=== PATIENT | female | born 1970 | race Caucasian/White ===

== ENCOUNTER 2018-02-09 20:04 | Emergency (ER) | payer OTHER ==
[~2018-02-09] VITALS: Ht 167.6 cm; Wt 99.3 kg
[~2018-02-09 20:04] MED LIST: ACEASPCAF PO; ACID REDUCER 1150 MG; ACYC400 PO; ALBU90I INH; ALBU90OI INH; ALBU90OI6 INH; ALBU90OI61 INH; ALBUTEROL MDI; ALLER-TEC D 5-1 EACH PO; AMOCLA875 PO; AMOX1XR PO; ATOM10 PO; ATOM40 PO; AZIT250 PO; BENZ100A PO; BIOTIN5000 MCG PO; BUDE10.22 INH; BUDE6HFA INH; BUPR150T2 PO; CALCA500CH; CALCAVITD PO; CEPH500 PO; CETI10 PO; CHOL10002 PO; CHRO200 PO; CIME400 PO; CIPR500 PO; CLIN300 PO; CLON.1 PO; CLON.5; CLON2 PO; CLONAZEPAM; CODGUAEL PO; CYCL10; CYCL10 PO; DESL5 PO; DIPATR PO; DIVA250EC; DULO30 PO; EPIPEN 2-P0.3 MG/0.3 IJ; EPIPEN0.3 MG/0.3 IM; ESCI10 PO; ESOM20 PO; ESTMEDA PO; ESTMETHS PO; ESTR2 PO; ESTRADIOL1 EAC1 TD; FERRO-TIME325 MG PO; FIBER PO; FLUC150A PO; FLUO20; FLUSAL2505 IH; FLUT110OIA INH; FLUT44OIA; FURO40 PO; Flomax0.4 MG PO; GABA100; GABA300 PO; GUAI120S1 PO; GUANFACINE HCL E1 MG PO; HYDACE25S PR; HYDACE5 PO; HYDCHL25 PO; HYDMOR2 PO; Hard Nails2500 MCG; IBUP600 PO; INDO50 PO; L-THREONINE500 MG PO; LEVSOD100 PO; LEVSOD125 PO; LEVSOD75 PO; LISI20 PO; LORA1 PO; LORA2 PO; MERIDIA; METF500 PO; METR500 PO; MIRALAX17 GM PO; MIRAPEX; MODA200 PO; MODAFINIL; MULVITA PO; MULVITB&C PO; MULVITMINE PO; Mucinex600 MG PO; NAPR375 PO; NAPR500 PO; Norco 10-325 T1 EACH PO; Norco 5-325 Ta1 EACH PO; OMEP20ER PO; ONDA4ODT MM; ONDA8 PO; OXYACE5T PO; OXYB5 PO; POLY17UD; POTCHL10ER PO; POTCHL20ER PO; PRAM.125 PO; PRED20 PO; PROBIOTIC1 EAC1 PO; PROC10 PO; Prednisone20 MG PO; Protonix40 MG PO; QUET25; RANI150; RISP.25; RXDIPATR PO; RXHYDACE PO; RXLORA1 PO; SPIR25 PO; SULTRIDS PO; Super B Comple150 MG PO; TOPI100 PO; TOPI25; TRAM50; VALA500 PO; Vitamin B-650 MG PO; Zithromax250 MG PO; [UNRECOGNIZED DRUG - OTHER]
[2018-02-09 20:50] LABS: BASOPHILS ABSOLUTE AUTO 0.06 K/mm3 (0.00-0.23); BASOPHILS PERCENT AUTO 1 % (0-2); EOSINOPHILS ABSOLUTE AUTO 0.18 K/mm3 (0.00-0.68); EOSINOPHILS PERCENT AUTO 2 % (0-6); Hematocrit 40.5 % (33.0-51.0); Hemoglobin 13.3 g/dL (11.5-16.0); IMMATURE GRAN ABSOLUTE AUTO 0.02 K/mm3 (0.00-0.10); IMMATURE GRAN PERCENT AUTO 0 % (0-1); LYMPHOCYTES ABSOLUTE AUTO 1.82 K/mm3 (0.84-5.20); LYMPHOCYTES PERCENT AUTO 19 % (21-46); MONOCYTES ABSOLUTE AUTO 0.64 K/mm3 (0.16-1.47); MONOCYTES PERCENT AUTO 7 % (4-13); Mean Corpuscular HGB 27.9 pg (26.0-34.0); Mean Corpuscular HGB Conc 32.8 g/dL (31.5-36.5); Mean Corpuscular Volume 85 fL (80-100); NEUTROPHILS ABSOLUTE AUTO 6.69 K/mm3 (1.96-9.15); NEUTROPHILS PERCENT AUTO 71 % (41-73); Platelet Count 225 K/mm3 (150-400); RDW Coefficient Variation 12.5 % (11.7-14.2); RDW Standard Deviation 38.5 fL (35.1-46.3); Red Blood Cell Count 4.76 M/mm3 (3.80-5.20); White Blood Cell Count 9.41 K/mm3 (4.00-11.30)
[2018-02-09] MEDS ORDERED: MELA3 PO (21:03)
[2018-02-09] MEDS ORDERED: FURO20 PO (21:04)
[2018-02-09 21:10] LABS: Albumin, Blood 3.4 g/dL (3.4-5.0); Bilirubin, Total 0.3 mg/dL (0.1-1.0); Bun/Creatinine Ratio 9.5 (12.0-20.0); Calcium, Blood 9.1 mg/dL (8.5-10.1); Creatinine, Blood 1.47 mg/dL (0.40-1.00); Globulin, Blood 3.5 g/dL (2.2-4.0); Potassium, Blood 4.1 mmol/L (3.5-5.5); Total Protein, Blood 6.9 g/dL (6.4-8.2)
[2018-02-09 21:17] LABS: Source, Urine Catheter
[2018-02-09 21:19] LABS: Appearance, Urine Clear (Clear); Bilirubin, Urine Neg (Neg); Blood, Urine Neg (Neg); Color, Urine Yellow (P-Yellow); Glucose Qualitative, Urine Neg (Neg); Ketones, Urine Neg (Neg); Leukocyte Esterase, Urine 2+ (Neg); Nitrite, Urine Neg (Neg); Protein, Urine Neg (Neg); Specific Gravity, Urine 1.015 (1.003-1.022); Urobilinogen, Urine NORM (Normal)
[2018-02-09 21:28] LABS: Amorphous Light (0-Heavy); Bacteria Mod /hpf; Red Blood Cells, Urine 0-2 /hpf (0-2); Squamous Epithelial Cells Few /hpf (Few)
[2018-02-09] MEDS ORDERED: Diflucan150 MG PO (22:54)
[2018-02-09] MEDS ORDERED: Zofran Odt4 MG SL (22:54)
[2018-02-09] MEDS ORDERED: Keflex500 MG PO (22:54)
[2018-04-03] MEDS ORDERED: KETO10 PO (13:49)
[2018-04-21] MEDS ORDERED: DULO30 PO (11:02)
[2018-04-21] MEDS ORDERED: CLON.5 PO (11:03)
[2018-04-21] MEDS ORDERED: Hair, Skin & N1 EACH PO (11:03)
== END 2018-02-09 23:03 | disposition home or self-care (01) ==
LOC: ER 20:04
PROVIDERS: Emergency Medicine; Nurse Practitioner Family
DX: R10.9 Unspecified abdominal pain (principal); R30.0 Dysuria; R35.0 Frequency of micturition; Z88.8 Allergy status to other drugs, medicaments and biological substances; Z88.1 Allergy status to other antibiotic agents; Z88.5 Allergy status to narcotic agent; Z91.030 Bee allergy status; Z79.84 Long term (current) use of oral hypoglycemic drugs; J45.909 Unspecified asthma, uncomplicated; Z79.2 Long term (current) use of antibiotics; I12.9 Hypertensive chronic kidney disease with stage 1 through stage 4 chronic kidney disease, or unspecified chronic kidney disease; E11.22 Type 2 diabetes mellitus with diabetic chronic kidney disease; N18.9 Chronic kidney disease, unspecified; E03.9 Hypothyroidism, unspecified; F43.10 Post-traumatic stress disorder, unspecified; Z79.899 Other long term (current) drug therapy
CPT/HCPCS: 36415; 80053; 81001; 83690; 85025; 87086; 96361; 96374; 96375; 99284; J0696; J1885; J2405; J7030

== ENCOUNTER → 2018-02-17 | Outpatient (CLI) | payer OTHER ==
[~2018-02-17] MED LIST changes: +CLON.5 PO; +Diflucan150 MG PO; +FURO20 PO; +Hair, Skin & N1 EACH PO; +KETO10 PO; +Keflex500 MG PO; +MELA3 PO; +Zofran Odt4 MG SL
[2018-02-17 19:59] LABS: Bun/Creatinine Ratio 12.4 (12.0-20.0); Calcium, Blood 9.1 mg/dL (8.5-10.1); Creatinine, Blood 1.37 mg/dL (0.40-1.00); Potassium, Blood 3.9 mmol/L (3.5-5.5)
== END | disposition home or self-care (01) ==
LOC: LAB 17:38
PROVIDERS: Family Medicine
DX: N39.0 Urinary tract infection, site not specified (principal); N19 Unspecified kidney failure
CPT/HCPCS: 80048; 87086

== ENCOUNTER 2018-04-22 08:25 | Day surgery (SDC) | payer OTHER ==
[~2018-04-22] VITALS: Ht 167.6 cm; Wt 91.2 kg
== END 2018-04-22 11:19 | disposition home or self-care (01) ==
LOC: ORSCMMR 08:25 → ORD 09:30 → ORSCMMR 09:30
PROVIDERS: Internal Medicine Gastroenterology
PROC: 0DB68ZX Excision of Stomach, Via Natural or Artificial Opening Endoscopic, Diagnostic (ICD-10-PCS; principal; 2018-04-22 09:30)
PROC: 0DB48ZX Excision of Esophagogastric Junction, Via Natural or Artificial Opening Endoscopic, Diagnostic (ICD-10-PCS; principal; 2018-04-22 09:30)
DX: R11.2 Nausea with vomiting, unspecified (principal); K21.9 Gastro-esophageal reflux disease without esophagitis; R63.4 Abnormal weight loss; I10 Essential (primary) hypertension; E03.9 Hypothyroidism, unspecified; J44.9 Chronic obstructive pulmonary disease, unspecified; E66.9 Obesity, unspecified; Z68.32 Body mass index [BMI] 32.0-32.9, adult; E11.9 Type 2 diabetes mellitus without complications; Z79.84 Long term (current) use of oral hypoglycemic drugs; Z79.899 Other long term (current) drug therapy
CPT/HCPCS: 82947; 88305; 88341; 88342; J7030

== ENCOUNTER 2018-05-18 01:36 | Emergency (ER) | payer OTHER ==
[~2018-05-18] VITALS: Ht 167.6 cm; Wt 91.6 kg
== END 2018-05-18 04:23 | disposition home or self-care (01) ==
LOC: ER 01:36
DX: G43.909 Migraine, unspecified, not intractable, without status migrainosus (principal); Z88.8 Allergy status to other drugs, medicaments and biological substances; Z88.1 Allergy status to other antibiotic agents; Z88.5 Allergy status to narcotic agent; Z88.7 Allergy status to serum and vaccine; Z79.899 Other long term (current) drug therapy; Z79.84 Long term (current) use of oral hypoglycemic drugs; J45.909 Unspecified asthma, uncomplicated; F31.9 Bipolar disorder, unspecified; N18.3 Chronic kidney disease, stage 3 (moderate); Z87.442 Personal history of urinary calculi
CPT/HCPCS: 96361; 96374; 96375; 99283; J1200; J1885; J2405; J2765; J7030

== ENCOUNTER 2020-03-08 00:32 | Day surgery (SDC) | payer OTHER ==
[~2020-03-08 00:32] MED LIST changes: +LOSA25 PO
[2020-03-08] MEDS ORDERED: OXYB5 PO (09:15)
--- NOTE | 2020-03-08 09:31 | NUR ---
Patient pre void bladder scan is 416, Patient voided 400 mls, Patient post void residual was 40.
== END 2020-03-08 09:25 | disposition home or self-care (01) ==
LOC: ATC 00:32
DX: R61 Generalized hyperhidrosis (principal); R32 Unspecified urinary incontinence; E11.22 Type 2 diabetes mellitus with diabetic chronic kidney disease; N18.9 Chronic kidney disease, unspecified; Z88.8 Allergy status to other drugs, medicaments and biological substances; Z88.5 Allergy status to narcotic agent; Z79.899 Other long term (current) drug therapy
CPT/HCPCS: 51798

== ENCOUNTER → 2020-04-18 | Outpatient (CLI) | payer OTHER ==
[2020-04-19 16:18] LABS: Free Thyroxine 1.25 ng/dL (0.70-1.60); Triiodothyronine, Free 2.22 pg/mL (2.18-3.98)
== END | disposition home or self-care (01) ==
LOC: LAB 15:30 → LAB SHORT 15:30
PROVIDERS: Family Medicine
DX: E03.9 Hypothyroidism, unspecified (principal)
CPT/HCPCS: 84439; 84443; 84481

== ENCOUNTER 2020-11-07 09:49 | Day surgery (SDC) | payer OTHER ==
[~2020-11-07] VITALS: Ht 167.6 cm; Wt 103.1 kg
[~2020-11-07 09:49] MED LIST changes: +Cimetidine800 MG PO; +TELM80 PO
[2020-11-07] MEDS ORDERED: DOTTI1 EAC6 (10:27)
--- NOTE | 2020-11-07 10:54 | NUR ---
11/07/20 1054 Alisha Carlton PT RECIEVEING LIDOCAINE 4% UPDRAFT AT THIS TIME PER DR BOSE
== END 2020-11-07 11:55 | disposition home or self-care (01) ==
LOC: ORSCSDS 09:49
PROVIDERS: Student in an Organized Health Care Education/Training Program
PROC: 0DB58ZX Excision of Esophagus, Via Natural or Artificial Opening Endoscopic, Diagnostic (ICD-10-PCS; principal; 2020-11-07 11:00)
PROC: 0DB48ZX Excision of Esophagogastric Junction, Via Natural or Artificial Opening Endoscopic, Diagnostic (ICD-10-PCS; principal; 2020-11-07 11:00)
PROC: 0DB68ZX Excision of Stomach, Via Natural or Artificial Opening Endoscopic, Diagnostic (ICD-10-PCS; principal; 2020-11-07 11:00)
PROC: 0DB98ZX Excision of Duodenum, Via Natural or Artificial Opening Endoscopic, Diagnostic (ICD-10-PCS; principal; 2020-11-07 11:00)
DX: K21.9 Gastro-esophageal reflux disease without esophagitis (principal); K31.819 Angiodysplasia of stomach and duodenum without bleeding; K29.80 Duodenitis without bleeding; K29.50 Unspecified chronic gastritis without bleeding; K31.7 Polyp of stomach and duodenum; K44.9 Diaphragmatic hernia without obstruction or gangrene; R12 Heartburn; I10 Essential (primary) hypertension; E03.9 Hypothyroidism, unspecified; G47.33 Obstructive sleep apnea (adult) (pediatric); E11.9 Type 2 diabetes mellitus without complications; E66.9 Obesity, unspecified; Z68.36 Body mass index [BMI] 36.0-36.9, adult; Z79.899 Other long term (current) drug therapy
CPT/HCPCS: 82947; 88305; 88342; J2001; J2250; J2704; J7120

== ENCOUNTER 2021-04-26 11:11 | Emergency (ER) | payer OTHER ==
[~2021-04-26] VITALS: Ht 167.6 cm; Wt 99.8 kg
[~2021-04-26 11:11] MED LIST changes: +DOTTI1 EAC6
[2021-04-26 11:57] LABS: BASOPHILS ABSOLUTE AUTO 0.06 K/mm3 (0.00-0.23); BASOPHILS PERCENT AUTO 1 % (0-2); EOSINOPHILS PERCENT AUTO 1 % (0-6); Hematocrit 43.9 % (33.0-51.0); Hemoglobin 14.2 g/dL (11.5-16.0); IMMATURE GRAN ABSOLUTE AUTO 0.03 K/mm3 (0.00-0.10); IMMATURE GRAN PERCENT AUTO 0 % (0-1); LYMPHOCYTES PERCENT AUTO 32 % (21-46); MONOCYTES ABSOLUTE AUTO 0.45 K/mm3 (0.16-1.47); MONOCYTES PERCENT AUTO 6 % (4-13); Mean Corpuscular HGB 27.4 pg (26.0-34.0); Mean Corpuscular HGB Conc 32.3 g/dL (31.5-36.5); Mean Corpuscular Volume 85 fL (80-100); Mean Platelet Volume 10.3 fL (9.1-12.4); NEUTROPHILS ABSOLUTE AUTO 4.58 K/mm3 (1.96-9.15); NEUTROPHILS PERCENT AUTO 60 % (41-73); Platelet Count 241 K/mm3 (150-400); RDW Coefficient Variation 13.3 % (11.7-14.2); RDW Standard Deviation 41.5 fL (35.1-46.3); Red Blood Cell Count 5.18 M/mm3 (3.80-5.20); White Blood Cell Count 7.62 K/mm3 (4.00-11.30)
[2021-04-26 12:05] LABS: Alanine Aminotransfer (ALT/SGP 21 U/L (12-78); Albumin, Blood 3.6 g/dL (3.4-5.0); Alk Phos 116 U/L (50-136); Anion Gap 6 mmol/L (6-16); Aspartate Aminotrans (AST/SGOT 11 U/L (12-37); Bilirubin, Total 0.4 mg/dL (0.1-1.0); Blood Urea Nitrogen 12 mg/dL (8-24); Bun/Creatinine Ratio 11.8 (12.0-20.0); CO2, Blood 23 mmol/L (21-32); Calcium, Blood 8.7 mg/dL (8.5-10.1); Chloride, Blood 109 mmol/L (98-108); Creatinine, Blood 1.02 mg/dL (0.40-1.00); Globulin, Blood 3.6 g/dL (2.2-4.0); Glomerular Filtration Rate >60 (60-); Glucose, Blood 135 mg/dL (70-99); Sodium, Blood 138 mmol/L (136-145); Total Protein, Blood 7.2 g/dL (6.4-8.2); Troponin I <0.015 ng/mL (0.000-0.040)
== END 2021-04-26 12:41 | disposition home or self-care (01) ==
LOC: ER 11:11
PROVIDERS: Physician Assistant
DX: M79.10 Myalgia, unspecified site (principal); J44.9 Chronic obstructive pulmonary disease, unspecified; K21.9 Gastro-esophageal reflux disease without esophagitis; E11.22 Type 2 diabetes mellitus with diabetic chronic kidney disease; N18.30 Chronic kidney disease, stage 3 unspecified; Z79.899 Other long term (current) drug therapy; Z88.7 Allergy status to serum and vaccine; Z88.5 Allergy status to narcotic agent; Z88.8 Allergy status to other drugs, medicaments and biological substances
CPT/HCPCS: 36415; 71046; 80053; 84484; 85025; 93005; 93010; 99284-25

== ENCOUNTER → 2023-10-04 | Outpatient (CLI) | payer OTHER ==
[~2023-10-04] MED LIST changes: +TRAM50 PO
[2023-10-04 16:31] LABS: BASOPHILS ABSOLUTE AUTO 0.06 K/mm3 (0.00-0.23); BASOPHILS PERCENT AUTO 1 % (0-2); EOSINOPHILS ABSOLUTE AUTO 0.11 K/mm3 (0.00-0.68); EOSINOPHILS PERCENT AUTO 1 % (0-6); Hematocrit 37.8 % (33.0-51.0); Hemoglobin 12.7 g/dL (11.5-16.0); IMMATURE GRAN ABSOLUTE AUTO 0.02 K/mm3 (0.00-0.10); IMMATURE GRAN PERCENT AUTO 0 % (0-1); LYMPHOCYTES ABSOLUTE AUTO 2.18 K/mm3 (0.84-5.20); LYMPHOCYTES PERCENT AUTO 27 % (21-46); MONOCYTES PERCENT AUTO 8 % (4-13); Mean Corpuscular HGB Conc 33.6 g/dL (31.5-36.5); Mean Corpuscular Volume 83 fL (80-100); Mean Platelet Volume 9.8 fL (9.1-12.4); NEUTROPHILS ABSOLUTE AUTO 5.08 K/mm3 (1.96-9.15); NEUTROPHILS PERCENT AUTO 63 % (41-73); Platelet Count 212 K/mm3 (150-400); RDW Coefficient Variation 13.5 % (11.7-14.2); RDW Standard Deviation 41.2 fL (35.1-46.3); Red Blood Cell Count 4.53 M/mm3 (3.80-5.20); White Blood Cell Count 8.05 K/mm3 (4.00-11.30)
[2023-10-04 18:21] LABS: Albumin, Blood 3.3 g/dL (3.4-5.0); Albumin/Globulin Ratio 0.9 (0.8-1.8); Bilirubin, Total 0.2 mg/dL (0.1-1.0); Bun/Creatinine Ratio 19.7 (12.0-20.0); Calcium, Blood 8.5 mg/dL (8.5-10.1); Creatinine, Blood 0.71 mg/dL (0.40-1.00); Globulin, Blood 3.5 g/dL (2.2-4.0); Potassium, Blood 3.7 mmol/L (3.5-5.5); Total Protein, Blood 6.8 g/dL (6.4-8.2)
== END ==
LOC: LAB 15:26 → LAB SHORT 15:26
PROVIDERS: Nurse Practitioner Family
DX: R73.03 Prediabetes (principal)
CPT/HCPCS: 80053; 83036; 85025

== ENCOUNTER 2023-10-07 19:52 | Emergency (ER) | payer OTHER, BC ==
[~2023-10-07] VITALS: Ht 167.6 cm; Wt 108.9 kg
[~2023-10-07 19:52] MED LIST changes: -TRAM50 PO
[2023-10-07 20:47] VITALS: BP 137/91
[2023-10-07] MEDS ORDERED: TRAM50 PO (23:30)
== END 2023-10-07 23:55 | disposition home or self-care (01) ==
LOC: ER 19:52
DX: M79.605 Pain in left leg (principal); S80.12XA Contusion of left lower leg, initial encounter; E11.22 Type 2 diabetes mellitus with diabetic chronic kidney disease; N18.30 Chronic kidney disease, stage 3 unspecified; J44.9 Chronic obstructive pulmonary disease, unspecified; Z89.512 Acquired absence of left leg below knee; W05.0XXA Fall from non-moving wheelchair, initial encounter; Z79.899 Other long term (current) drug therapy; Z79.890 Hormone replacement therapy; Z79.51 Long term (current) use of inhaled steroids
CPT/HCPCS: 73590; 99283-25; A9270

== ENCOUNTER → 2024-05-13 | Outpatient (CLI) | payer OTHER, BC ==
[~2024-05-13] MED LIST changes: +TRAM50 PO
== END ==
LOC: LAB SHORT 16:57 → LAB 16:57
DX: N39.0 Urinary tract infection, site not specified (principal)
CPT/HCPCS: 87086

== ENCOUNTER 2024-08-19 13:36 | Emergency (ER) | payer OTHER ==
[~2024-08-19] VITALS: Ht 167.6 cm; Wt 102.1 kg
[2024-08-19 13:45] VITALS: BP 167/96
[2024-08-19] MEDS ORDERED: HYDROcodone 5-APAP 325 TAB PO ONE (15:05)
[2024-08-19] MEDS ORDERED: HYDROCODONE-AC1 EA10 PO (15:08)
== END 2024-08-19 15:15 | disposition home or self-care (01) ==
LOC: ER 13:36
DX: M25.562 Pain in left knee (principal); F43.10 Post-traumatic stress disorder, unspecified; J44.89 Other specified chronic obstructive pulmonary disease; E11.22 Type 2 diabetes mellitus with diabetic chronic kidney disease; N18.30 Chronic kidney disease, stage 3 unspecified; K21.9 Gastro-esophageal reflux disease without esophagitis; Z79.51 Long term (current) use of inhaled steroids; Z79.899 Other long term (current) drug therapy; Z88.1 Allergy status to other antibiotic agents; Z88.5 Allergy status to narcotic agent; Z88.6 Allergy status to analgesic agent; Z91.030 Bee allergy status; Z88.8 Allergy status to other drugs, medicaments and biological substances
CPT/HCPCS: 73562-LT; 99283-25; A9270